=== PATIENT | male | born 1960 | race Caucasian/White ===

== ENCOUNTER 2017-12-11 09:16 | Emergency (ER) | payer OTHER ==
[2017-12-11] MEDS ORDERED: LIDOCAINE 1% (MDV) 20 ML INJ (14:20)
== END 2017-12-11 15:33 | disposition home or self-care (01) ==
LOC: E/R 09:16
DX: N18.6 End stage renal disease (principal); I12.0 Hypertensive chronic kidney disease with stage 5 chronic kidney disease or end stage renal disease; Z87.891 Personal history of nicotine dependence; Z99.2 Dependence on renal dialysis
CPT/HCPCS: 82962; 99283-25